=== PATIENT | female | born 1940 | race Caucasian/White ===

== ENCOUNTER 2017-09-30 10:41 | Emergency (ER) | payer MEDICARE, OTHER ==
[2017-09-30 12:12] LABS: ADD MAN DIFF? NO
[2017-09-30 12:15] LABS: BASOPHILS % 0.3 % (0.0-2.0); EOSINOPHILS # 0.1 10^3/ul (0.0-0.5); EOSINOPHILS % 1.6 % (0.0-7.0); HEMATOCRIT 38.9 % (37.0-47.0); HEMOGLOBIN 12.5 g/dl (12.0-16.0); LYMPHOCYTES # 2.3 10^3/ul (0.8-2.9); LYMPHOCYTES % 34.1 % (15.0-51.0); MEAN CORPUSCULAR HGB CONC 32.1 g/dl (32.0-37.0); MEAN CORPUSCULAR VOLUME 93.3 fl (82.0-101.0); MEAN PLATELET VOLUME 9.5 fl (7.4-10.4); MONOCYTE # 0.6 10^3/ul (0.3-0.9); NEUTROPHIL # 3.7 10^3/ul (1.6-7.5); NEUTROPHILS % 54.9 % (39.0-77.0); PLATELET COUNT 263 10^3/UL (140-415); RED BLOOD COUNT 4.17 10^6/ul (4.20-5.40); RED CELL DISTRIBUTION WIDTH 13.2 % (11.5-14.5)
[2017-09-30 12:15] LABS: WHITE BLOOD COUNT 6.8 10^3/ul (4.8-10.8)
[2017-09-30 12:50] LABS: B-TYPE NATRIURETIC PEPTIDE 295 PG/ML (0-450)
[2017-09-30 12:51] LABS: TROPONIN-I < 0.012 ng/ml (0.00-0.12)
[2017-09-30 12:54] LABS: ALANINE AMINOTRANSFERASE 28 IU/L (13-69); ALBUMIN 3.9 g/dl (3.3-4.9); ALBUMIN/GLOBULIN RATIO 1.08; ALKALINE PHOSPHATASE 135 IU/L (42-121); ANION GAP 12 (8-16); ASPARTATE AMINO TRANSFERASE 26 IU/L (15-46); BLOOD UREA NITROGEN 25 mg/dl (7-20); CALCIUM 8.9 mg/dl (8.4-10.2); CARBON DIOXIDE 31 mmol/L (21-31); CHLORIDE 101 mmol/L (97-110); CREATININE 0.88 mg/dl (0.44-1.00); GLUCOSE 92 mg/dl (70-220); POTASSIUM 3.8 mmol/L (3.5-5.1); SODIUM 140 mmol/L (135-144); TOTAL PROTEIN 7.5 g/dl (6.1-8.1)
[2017-09-30 13:02] LABS: BILIRUBIN,INDIRECT 0.3 mg/dl (0-1.1); BILIRUBIN,TOTAL 0.3 mg/dl (0.2-1.3)
== END 2017-09-30 18:30 | disposition home or self-care (01) ==
LOC: FTE 18:30
DX: R06.02 Shortness of breath (principal); R07.9 Chest pain, unspecified; I10 Essential (primary) hypertension; Z76.0 Encounter for issue of repeat prescription; Z79.82 Long term (current) use of aspirin
CPT/HCPCS: 36415; 71010; 80053; 83880; 84484; 85025; 93005; 99285-25